=== PATIENT | female | born 1990 | race Caucasian/White ===

== ENCOUNTER 2018-11-13 11:30 | Emergency (ER) | payer MEDICAID ==
[2018-11-13] MEDS: KETOROLAC 30 MG INJ IM (13:28)
== END 2018-11-13 14:48 | disposition home or self-care (01) ==
LOC: FTE 11:30
DX: S89.92XA Unspecified injury of left lower leg, initial encounter (principal); X50.1XXA Overexertion from prolonged static or awkward postures, initial encounter; Y92.9 Unspecified place or not applicable
CPT/HCPCS: 29505; 73562; 81025; 96372; 99284-25